=== PATIENT | male | born 1980 | race Caucasian/White ===

== ENCOUNTER 2016-09-23 18:29 | Emergency (ER) | payer MEDICAID ==
[~2016-09-23] VITALS: Ht 177.8 cm; Wt 113.6 kg
[~2016-09-23 18:29] MED LIST: NOCURR
[2016-09-23] MEDS ORDERED: PERTUSS(ACELL),DIPH,TET VAC/PF 0.5 ML VIAL IM ONE (22:15)
[2016-09-23] MEDS ORDERED: CEPHALEXIN MONOHYDRATE 500 MG CAPSULE PO ONE (22:15)
[2016-09-23] MEDS ORDERED: SULFAMETHOX/TRIMETH DS 800-160 MG/TABLET PO ONE (22:15)
[2016-09-23 22:38] VITALS: BP 136/78
== END 2016-09-23 23:09 | disposition home or self-care (01) ==
LOC: EMS 18:32
DX: S62.632A Displaced fracture of distal phalanx of right middle finger, initial encounter for closed fracture (principal); S67.192A Crushing injury of right middle finger, initial encounter; F17.210 Nicotine dependence, cigarettes, uncomplicated; W23.0XXA Caught, crushed, jammed, or pinched between moving objects, initial encounter; Y93.89 Activity, other specified; Y92.89 Other specified places as the place of occurrence of the external cause; Y99.8 Other external cause status
CPT/HCPCS: 90471; 90715; 99284

== ENCOUNTER 2017-06-01 21:01 | Emergency (ER) | payer MEDICAID, OTHER ==
[~2017-06-01] VITALS: Ht 177.8 cm; Wt 95.5 kg
[2017-06-01] MEDS ORDERED: LIDOCAINE HCL 1% 20 ML VIAL INJ ONE (21:45)
[2017-06-01] MEDS ORDERED: LIDOCAINE HCL 1% 10 ML VIAL INJ ONE (21:45)
[2017-06-01 21:54] VITALS: BP 120/76
[2017-06-01] MEDS ORDERED: CefTRIAXone SODIUM 1 GM/VIAL IM ONE (22:00)
[2017-06-01] MEDS ORDERED: SULFAMETHOX/TRIMETH DS 800-160 MG/TABLET PO ONE (22:00)
[2017-06-01] MEDS ORDERED: HYDROCODONE/ACETAMINOPHEN 5-325 MG TABLET PO ONE (22:00)
[2017-06-01] MEDS: LIDOCAINE HCL/PF 1% 2 ML VIAL IM ONE ×2 (22:06→22:07)
[2017-06-01] MEDS ORDERED: IBUPROFEN 600 MG TABLET PO ONE (22:15)
== END 2017-06-01 22:24 | disposition home or self-care (01) ==
LOC: EMS 21:03
DX: L03.112 Cellulitis of left axilla (principal); F15.90 Other stimulant use, unspecified, uncomplicated; F17.210 Nicotine dependence, cigarettes, uncomplicated
CPT/HCPCS: 96372; 99284; J0696; J3490

== ENCOUNTER 2017-07-04 02:38 | Emergency (ER) | payer OTHER ==
[~2017-07-04] VITALS: Ht 177.8 cm; Wt 104.5 kg
[2017-07-04] MEDS ORDERED: CEPHALEXIN MONOHYDRATE 500 MG CAPSULE PO ONE (04:30)
[2017-07-04] MEDS ORDERED: IBUPROFEN 600 MG TABLET PO ONE (04:30)
[2017-07-04 05:25] VITALS: BP 129/72
== END 2017-07-04 05:26 | disposition home or self-care (01) ==
LOC: EMS 02:39
DX: J02.9 Acute pharyngitis, unspecified (principal); R13.10 Dysphagia, unspecified; F17.210 Nicotine dependence, cigarettes, uncomplicated; F19.90 Other psychoactive substance use, unspecified, uncomplicated
CPT/HCPCS: 99283; 99406

== ENCOUNTER 2017-08-10 02:46 | Emergency (ER) | payer OTHER ==
[~2017-08-10] VITALS: Ht 177.8 cm; Wt 104.5 kg
[2017-08-10 06:04] VITALS: BP 133/86
== END 2017-08-10 06:28 | disposition home or self-care (01) ==
LOC: EMS 02:46
DX: L73.9 Follicular disorder, unspecified (principal); J34.89 Other specified disorders of nose and nasal sinuses; L53.9 Erythematous condition, unspecified; F17.210 Nicotine dependence, cigarettes, uncomplicated; F19.90 Other psychoactive substance use, unspecified, uncomplicated
CPT/HCPCS: 99281; 99283

== ENCOUNTER 2017-10-12 | Emergency (ER) | payer OTHER ==
[~2017-10-12] VITALS: Ht 177.8 cm; Wt 93.6 kg
[2017-10-12 02:04] VITALS: BP 138/71
== END 2017-10-12 02:05 | disposition home or self-care (01) ==
LOC: EMS 00:01
DX: L01.00 Impetigo, unspecified (principal); F17.210 Nicotine dependence, cigarettes, uncomplicated; F15.10 Other stimulant abuse, uncomplicated
CPT/HCPCS: 99283

== ENCOUNTER 2017-12-16 20:31 | Emergency (ER) | payer OTHER ==
[~2017-12-16] VITALS: Ht 177.8 cm; Wt 90.0 kg
[2017-12-16 21:20] VITALS: BP 141/78
== END 2017-12-16 22:00 | disposition home or self-care (01) ==
LOC: EMS 20:31
DX: J30.9 Allergic rhinitis, unspecified (principal); F15.90 Other stimulant use, unspecified, uncomplicated; F17.210 Nicotine dependence, cigarettes, uncomplicated
CPT/HCPCS: 99281

== ENCOUNTER 2017-12-18 05:14 | Emergency (ER) | payer OTHER ==
[~2017-12-18] VITALS: Ht 175.3 cm; Wt 100.0 kg
[2017-12-18 06:05] VITALS: BP 135/98
[2017-12-18] MEDS ORDERED: CEPHALEXIN MONOHYDRATE 500 MG CAPSULE PO ONE (06:30)
== END 2017-12-18 06:27 | disposition home or self-care (01) ==
LOC: EMS 05:16
DX: J34.0 Abscess, furuncle and carbuncle of nose (principal); J06.9 Acute upper respiratory infection, unspecified; F17.210 Nicotine dependence, cigarettes, uncomplicated; F15.10 Other stimulant abuse, uncomplicated
CPT/HCPCS: 99283; 99406

== ENCOUNTER 2018-01-06 23:54 | Emergency (ER) | payer OTHER ==
[~2018-01-06] VITALS: Ht 175.3 cm; Wt 100.0 kg
[2018-01-07] MEDS ORDERED: LIDOCAINE HCL/PF 1% 2 ML VIAL IM ONE (00:45)
[2018-01-07] MEDS ORDERED: CefTRIAXone SODIUM 1 GM/VIAL IM ONE (00:45)
[2018-01-07] MEDS: KETOROLAC TROMETHAMINE 30 MG/ML VIAL IM ONE ×2 (01:16→01:24)
[2018-01-07 01:28] VITALS: BP 128/81
== END 2018-01-07 01:30 | disposition home or self-care (01) ==
LOC: EMS 23:55
DX: L03.115 Cellulitis of right lower limb (principal); F17.210 Nicotine dependence, cigarettes, uncomplicated; F19.90 Other psychoactive substance use, unspecified, uncomplicated
CPT/HCPCS: 96372; 99283; J0696; J1885; J3490

== ENCOUNTER 2018-02-19 04:28 | Emergency (ER) | payer OTHER ==
[~2018-02-19] VITALS: Ht 177.8 cm; Wt 82.7 kg
[2018-02-19 04:36] VITALS: BP 130/78
== END 2018-02-19 05:32 | disposition left against medical advice (07) ==
LOC: EMS 04:29
DX: M54.5 Low back pain (principal); F17.210 Nicotine dependence, cigarettes, uncomplicated; F19.90 Other psychoactive substance use, unspecified, uncomplicated; Z53.21 Procedure and treatment not carried out due to patient leaving prior to being seen by health care provider

== ENCOUNTER 2018-02-22 03:02 | Emergency (ER) | payer OTHER ==
[~2018-02-22] VITALS: Ht 177.8 cm; Wt 87.3 kg
[2018-02-22 04:12] VITALS: BP 117/80
== END 2018-02-22 04:18 | disposition home or self-care (01) ==
LOC: EMS 03:03
DX: M25.561 Pain in right knee (principal); L08.9 Local infection of the skin and subcutaneous tissue, unspecified; F17.210 Nicotine dependence, cigarettes, uncomplicated; F19.90 Other psychoactive substance use, unspecified, uncomplicated
CPT/HCPCS: 99283; 99406

== ENCOUNTER 2018-03-23 23:27 | Emergency (ER) | payer OTHER ==
[~2018-03-23] VITALS: Ht 177.8 cm; Wt 87.3 kg
[2018-03-23 23:53] VITALS: BP 144/84
[2018-03-24] MEDS ORDERED: CEPHALEXIN MONOHYDRATE 500 MG CAPSULE PO ONE
[2018-03-24] MEDS ORDERED: SULFAMETHOX/TRIMETH DS 800-160 MG/TABLET PO ONE
== END 2018-03-24 00:15 | disposition home or self-care (01) ==
LOC: EMS 23:27
DX: L73.9 Follicular disorder, unspecified (principal); F17.210 Nicotine dependence, cigarettes, uncomplicated; F15.90 Other stimulant use, unspecified, uncomplicated
CPT/HCPCS: 99283

== ENCOUNTER 2018-04-21 03:40 | Emergency (ER) | payer OTHER ==
[~2018-04-21] VITALS: Ht 177.8 cm; Wt 86.4 kg
[2018-04-21 03:58] VITALS: BP 141/76
== END 2018-04-21 04:20 | disposition home or self-care (01) ==
LOC: EMS 03:40
DX: L02.31 Cutaneous abscess of buttock (principal); F15.90 Other stimulant use, unspecified, uncomplicated; F17.210 Nicotine dependence, cigarettes, uncomplicated

== ENCOUNTER 2018-05-09 01:52 | Emergency (ER) | payer OTHER ==
[~2018-05-09] VITALS: Ht 177.8 cm; Wt 84.1 kg
[2018-05-09] MEDS ORDERED: KETOROLAC TROMETHAMINE 60 MG/2 ML VIAL IM ONE (05:00)
[2018-05-09] MEDS ORDERED: SULFAMETHOX/TRIMETH DS 800-160 MG/TABLET PO ONE (05:00)
[2018-05-09] MEDS ORDERED: CEPHALEXIN MONOHYDRATE 500 MG CAPSULE PO ONE (05:00)
[2018-05-09 05:45] VITALS: BP 141/83
== END 2018-05-09 05:46 | disposition home or self-care (01) ==
LOC: EMS 01:53
DX: L02.31 Cutaneous abscess of buttock (principal)
CPT/HCPCS: 96372; 99283; J1885

== ENCOUNTER 2018-05-13 10:27 | Emergency (ER) | payer OTHER ==
[~2018-05-13] VITALS: Ht 177.8 cm; Wt 95.5 kg
[2018-05-13 13:17] VITALS: BP 128/75
== END 2018-05-13 13:19 | disposition home or self-care (01) ==
LOC: EMS 10:28
DX: L02.31 Cutaneous abscess of buttock (principal); Z76.0 Encounter for issue of repeat prescription

== ENCOUNTER 2018-05-25 02:07 | Emergency (ER) | payer OTHER ==
[~2018-05-25] VITALS: Ht 177.8 cm; Wt 95.5 kg
[2018-05-25] MEDS ORDERED: KETOROLAC TROMETHAMINE 60 MG/2 ML VIAL IM ONE (04:15)
[2018-05-25] MEDS ORDERED: MethylPREDNISolone SOD SUCC 125 MG/2 ML VIAL IM ONE (04:15)
[2018-05-25 05:30] VITALS: BP 132/70
== END 2018-05-25 06:50 | disposition home or self-care (01) ==
LOC: EMS 02:08
DX: M54.41 Lumbago with sciatica, right side (principal)
CPT/HCPCS: 96372; 99283; J1885; J2930

== ENCOUNTER 2018-06-07 04:22 | Emergency (ER) | payer OTHER ==
[~2018-06-07] VITALS: Ht 177.8 cm; Wt 86.4 kg
[2018-06-07] MEDS ORDERED: IBUPROFEN 600 MG TABLET PO ONE (06:30)
[2018-06-07 06:54] VITALS: BP 133/78
== END 2018-06-07 07:01 | disposition home or self-care (01) ==
LOC: EMS 04:23
DX: S39.012A Strain of muscle, fascia and tendon of lower back, initial encounter (principal); F17.210 Nicotine dependence, cigarettes, uncomplicated; X58.XXXA Exposure to other specified factors, initial encounter; Y93.89 Activity, other specified; Y92.89 Other specified places as the place of occurrence of the external cause; Y99.8 Other external cause status
CPT/HCPCS: 73503

== ENCOUNTER 2018-06-25 11:11 | Emergency (ER) | payer OTHER ==
[~2018-06-25] VITALS: Ht 177.8 cm; Wt 95.5 kg
[2018-06-25] MEDS ORDERED: KETOROLAC TROMETHAMINE 30 MG/ML VIAL IM ONE (12:30)
[2018-06-25 14:21] VITALS: BP 112/86
== END 2018-06-25 14:30 | disposition home or self-care (01) ==
LOC: EMS 11:12
DX: S86.812A Strain of other muscle(s) and tendon(s) at lower leg level, left leg, initial encounter (principal); M79.652 Pain in left thigh; F17.210 Nicotine dependence, cigarettes, uncomplicated; X50.9XXA Other and unspecified overexertion or strenuous movements or postures, initial encounter; Y93.89 Activity, other specified; Y92.89 Other specified places as the place of occurrence of the external cause; Y99.8 Other external cause status
CPT/HCPCS: 93971; 96372; 99284; J1885

== ENCOUNTER 2018-08-24 04:20 | Emergency (ER) | payer OTHER ==
[~2018-08-24] VITALS: Ht 175.3 cm; Wt 88.6 kg
[2018-08-24 04:28] VITALS: BP 140/70
[2018-08-24] MEDS ORDERED: LIDOCAINE/PF 1% 2 ML VIAL IM ONE (05:30)
[2018-08-24] MEDS ORDERED: CefTRIAXone SODIUM 1 GM/VIAL IM ONE (05:30)
== END 2018-08-24 06:12 | disposition home or self-care (01) ==
LOC: EMS 04:21
DX: L03.211 Cellulitis of face (principal); F17.210 Nicotine dependence, cigarettes, uncomplicated
CPT/HCPCS: 96372; 99283; J0696; J3490

== ENCOUNTER 2018-10-02 05:25 | Emergency (ER) | payer OTHER ==
[~2018-10-02] VITALS: Ht 177.8 cm; Wt 90.9 kg
[2018-10-02 05:34] VITALS: BP 126/73
== END 2018-10-02 05:40 | disposition home or self-care (01) ==
LOC: EMS 05:29
DX: T63.301A Toxic effect of unspecified spider venom, accidental (unintentional), initial encounter (principal); L02.415 Cutaneous abscess of right lower limb; F17.210 Nicotine dependence, cigarettes, uncomplicated
CPT/HCPCS: 99406

== ENCOUNTER 2018-10-27 19:09 | Emergency (ER) | payer OTHER ==
[~2018-10-27] VITALS: Ht 177.8 cm; Wt 93.2 kg
[2018-10-27] MEDS ORDERED: KETOROLAC TROMETHAMINE 30 MG/ML VIAL IM ONE (20:15)
[2018-10-27 20:22] VITALS: BP 115/65
== END 2018-10-27 21:13 | disposition home or self-care (01) ==
LOC: EMS 19:09
DX: R51 Headache (principal); F17.210 Nicotine dependence, cigarettes, uncomplicated
CPT/HCPCS: 96372; 99283; 99406; J1885

== ENCOUNTER 2018-12-04 00:54 | Emergency (ER) | payer OTHER ==
[~2018-12-04] VITALS: Ht 175.3 cm; Wt 93.2 kg
[2018-12-04] MEDS ORDERED: BUPIVACAINE HCL/PF 0.25% 10 ML VIAL INJ ONE (03:00)
[2018-12-04] MEDS ORDERED: CefTRIAXone SODIUM 1 GM/VIAL IM ONE (04:15)
[2018-12-04] MEDS ORDERED: DOXYCYCLINE HYCLATE 100 MG CAPSULE PO ONE (04:15)
[2018-12-04] MEDS ORDERED: LIDOCAINE/PF 1% 2 ML VIAL IM ONE (04:15)
[2018-12-04 04:37] VITALS: BP 137/62
== END 2018-12-04 04:45 | disposition home or self-care (01) ==
LOC: EMS 00:56
DX: L02.416 Cutaneous abscess of left lower limb (principal); L03.116 Cellulitis of left lower limb; F20.9 Schizophrenia, unspecified; F17.210 Nicotine dependence, cigarettes, uncomplicated; F12.90 Cannabis use, unspecified, uncomplicated
CPT/HCPCS: 10060; 96372; 99283; 99406; J0696; J3490 ×2

== ENCOUNTER 2018-12-10 02:17 | Emergency (ER) | payer OTHER ==
[~2018-12-10] VITALS: Ht 177.8 cm; Wt 91.0 kg
[2018-12-10 03:21] LABS: BASOPHILS % (AUTO) 1.2 % (0.0-2.0); EOSINOPHILS % (AUTO) 1.5 % (1.0-6.0); HEMATOCRIT 40.2 % (41-53); HEMOGLOBIN 13.4 g/dL (13.5-17.5); LYMPHOCYTES # (AUTO) 1.4 K/uL (1.0-4.8); LYMPHOCYTES % (AUTO) 21.7 % (22.0-44.0); MEAN CORPUSCULAR HEMOGLOBIN 31.7 pg (26.0-34.0); MEAN CORPUSCULAR HGB CONC 33.2 G/dL (31.0-37.0); MEAN CORPUSCULAR VOLUME 95 fL (80-100); MONOCYTES # (AUTO) 0.3 K/uL (0.1-1.0); MONOCYTES % (AUTO) 5.1 % (2.0-9.0); NEUTROPHILS # (AUTO) 4.6 K/uL (1.8-7.7); NEUTROPHILS % (AUTO) 70.5 % (40.0-70.0); PLATELET COUNT (AUTO) 438 K/uL (150-450); RED BLOOD CELL COUNT(AUTO) 4.22 MIL/uL (4.50-5.90); RED CELL DISTRIBUTION WIDTH 13.5 % (11.5-14.5)
[2018-12-10 03:30] LABS: ANION GAP 10 mmol/L (8-16); CALCIUM, TOTAL 8.5 mg/dL (8.8-10.5); CARBON DIOXIDE 28 mmol/L (22-29); CHLORIDE 104 mmol/L (98-107); CREATININE 1.04 mg/dL (0.60-1.30); GLOMERULAR FILTR. RATE CALC > 60 mL/min (>60); GLUCOSE,RANDOM 67 mg/dL (70-110); POTASSIUM 3.6 mmol/L (3.5-5.1); SODIUM SERUM 142 mmol/L (136-145); UREA NITROGEN, BLOOD 20 mg/dL (7-18)
[2018-12-10 03:37] LABS: ALANINE AMINOTRANSFERASE 28 U/L (12-78); ALBUMIN 3.3 g/dL (3.4-5.0); ALKALINE PHOSPHATASE 84 U/L (46-116); ASPARTATE AMINOTRANSFERASE 19 U/L (15-37); BILIRUBIN,TOTAL 0.3 mg/dL (0.1-1.0)
[2018-12-10 05:28] VITALS: BP 135/81
== END 2018-12-10 06:23 | disposition home or self-care (01) ==
LOC: EMS 02:19
DX: L02.416 Cutaneous abscess of left lower limb (principal); F41.9 Anxiety disorder, unspecified; F15.10 Other stimulant abuse, uncomplicated; F17.210 Nicotine dependence, cigarettes, uncomplicated; F12.90 Cannabis use, unspecified, uncomplicated
CPT/HCPCS: 80053; 85025; 99283; 99406; G0480

== ENCOUNTER 2019-06-20 04:05 | Emergency (ER) | payer OTHER ==
[~2019-06-20] VITALS: Ht 177.8 cm; Wt 95.5 kg
[2019-06-20 04:32] VITALS: BP 133/78
== END 2019-06-20 09:21 | disposition left against medical advice (07) ==
LOC: EMS 04:09
DX: L08.9 Local infection of the skin and subcutaneous tissue, unspecified (principal); Z53.21 Procedure and treatment not carried out due to patient leaving prior to being seen by health care provider

== ENCOUNTER 2019-09-07 23:28 | Emergency (ER) | payer OTHER | END 2019-09-08 00:20 | disposition left against medical advice (07) | LOC: EMS 23:28 | DX: M79.673 Pain in unspecified foot (principal); Z53.21 Procedure and treatment not carried out due to patient leaving prior to being seen by health care provider ==

== ENCOUNTER 2020-08-04 19:12 | Emergency (ER) | payer OTHER | END 2020-08-04 19:41 | disposition left against medical advice (07) | LOC: EMS 19:12 | DX: L02.512 Cutaneous abscess of left hand (principal); Z53.21 Procedure and treatment not carried out due to patient leaving prior to being seen by health care provider ==